=== PATIENT | male | born 2000 | race African-American/Black ===

== ENCOUNTER 2023-07-24 16:16 | Emergency (ER) | payer OTHER ==
[~2023-07-24] VITALS: Ht 177.8 cm; Wt 59.0 kg
[2023-07-24] MEDS ORDERED: CYCLOBENZAPRINE5 M3 PO (17:12)
== END 2023-07-24 17:21 | disposition home or self-care (01) ==
LOC: ED 16:16
DX: M54.50 Low back pain, unspecified (principal)

== ENCOUNTER 2024-02-24 21:00 | Emergency (ER) | payer OTHER ==
[~2024-02-24] VITALS: Ht 177.8 cm; Wt 54.4 kg
[~2024-02-24 21:00] MED LIST: CYCLOBENZAPRINE5 M3 PO
[2024-02-24] MEDS ORDERED: AMOX-CLAV 875-1 EACH PO (21:32)
[2024-02-24] MEDS ORDERED: Amoxicillin/Clavulanate Pota 875 MG TAB PO ONE ×3 (21:35)
== END 2024-02-24 21:42 | disposition home or self-care (01) ==
LOC: ED 21:00
DX: H66.91 Otitis media, unspecified, right ear (principal)